=== PATIENT | female | born 1955 | race Caucasian/White ===

== ENCOUNTER 2022-02-08 10:13 | Outpatient (CLI) | payer MEDICARE, BC, SELFPAY ==
[2022-02-08 12:49] LABS: Chloride* 105 mmol/L (96-114); Potassium* 4.6 mmol/L (3.6-5.1); Sodium* 144 mmol/L (135-149)
[2022-02-08 12:52] LABS: Carbon Dioxide* 32 mmol/L (20-32); Creatinine* 0.8 mg/dL (0.5-1.5); Estimated Glomerular Filt Rate 81 ml/min
[2022-02-08 12:53] LABS: Blood Urea Nitrogen* 11 mg/dL (7-30); Calcium* 10.2 mg/dL (8.4-10.6); Glucose* 81 mg/dL (60-115)
[2022-02-08 13:09] LABS: Vitamin D 25 Hydroxy* 92 ng/mL (30-80)
== END 2022-02-08 10:14 | disposition home or self-care (01) ==
PROVIDERS: PCP Internal Medicine; Visit Provider Internal Medicine
DX: Z01.419 Encounter for gynecological examination (general) (routine) without abnormal findings (principal); M85.80 Other specified disorders of bone density and structure, unspecified site; I10 Essential (primary) hypertension; N95.2 Postmenopausal atrophic vaginitis
CPT/HCPCS: 80048; 82306

== ENCOUNTER 2022-06-21 13:38 | Outpatient (CLI) | payer MEDICARE, BC, SELFPAY ==
--- NOTE | 2022-06-21 14:00 | CRLHL7_ITS ---
For Patients: As a result of the Cures Act, medical imaging exams and procedure reports are released immediately into your electronic medical record. You may view this report before your referring provider. If you have questions, please contact your health care provider. BILATERAL SCREENING MAMMOGRAM WITH COMPUTER-AIDED DETECTION AND TOMOSYNTHESIS INDICATION: 67-year-old asymptomatic female. History of benign LEFT breast biopsy in approximately 2009. History of BILATERAL breast implants. TECHNIQUE: CC and MLO views were obtained. This digital study was evaluated with assistance of computer-aided detection. Digital breast tomosynthesis utilized for interpretation. COMPARISON: Outside mammograms from [place] were not received. FINDINGS: Breast composition: The breasts are heterogeneously dense, which may obscure small masses No suspicious microcalcifications or regions of architectural distortion identified in either breast. There are retropectoral BILATERAL breast implants which appear intact. No underlying mass. No suspicious microcalcifications or regions of architectural distortion. IMPRESSION: Dense breast tissue. BILATERAL breast implants. Annual mammography recommended. BI-RADS Category 2: Benign A lay language report of this examination will be provided to the patient. Dictated by: Alok Robin MD @07/06/2022 10:26:11 AM/kermit CHRISTINA/Dictated by: Alok Robin MD @ 07/06/2022 10:26:00 AM (Electronically Signed)
== END 2022-06-21 13:39 | disposition home or self-care (01) ==
LOC: MAMMO 13:41
PROVIDERS: PCP Internal Medicine; Visit Provider Internal Medicine
DX: Z12.31 Encounter for screening mammogram for malignant neoplasm of breast (principal); R92.2 Inconclusive mammogram
CPT/HCPCS: 77063; 77067

== ENCOUNTER 2022-06-25 08:39 | Outpatient (CLI) | payer MEDICARE, BC, SELFPAY ==
--- NOTE | 2022-06-25 10:16 | W.ANESCHARGE ---
Anesthesia Charges Start Date/Time Anesthesia Start Date: 06/25/22 Anesthesia Start Time: 09:37 Stop Date/Time Anesthesia Stop Date: 06/25/22 Anesthesia Stop Time: 10:12
== END 2022-06-25 08:40 | disposition home or self-care (01) ==
PROVIDERS: PCP Internal Medicine; Visit Provider Internal Medicine Gastroenterology
DX: R19.5 Other fecal abnormalities (principal); Q43.8 Other specified congenital malformations of intestine
CPT/HCPCS: 00812; 45378; 45385; J2704

== ENCOUNTER 2023-12-30 11:19 | Outpatient (CLI) | payer MEDICARE, BC, SELFPAY ==
--- OUTSIDE RECORDS SUMMARY | 2023-12-30 11:25 | XMS_ITS | Clinical Summary ---
Author Organization [facility] Address [address] [place] [id number] Care Team Providers Care Ground Operations Crew Member Name Role Phone No Ref-Primary, Physician Primary Care Provider Allergies Active Allergy Reactions Criticality Noted Date Comments Lactose GI Disturbance 07/22/2018 Needed Hospitalized as a Latex 12/12/2016 Medications Medication Sig Dispensed Refills Start Date End Date Status olmesartan (BENICAR) 20 MG tabletIndications:Sang gn essential hypertension Take 1 tablet (20 mg) by mouth At Bedtime 90 tablet 1 09/15/2019 Active Active Problems Problem Noted Date Diagnosed Date Benign essential hypertension 09/15/2019 Immunizations Name Administration Dates Next Due Influenza Vaccine >6 months,quad, PF 12/12/2018 Mantoux Tuberculin Skin Test 12/12/2016 TDAP Vaccine (Adacel) 07/22/2018 Family History Medical History Relation Comments Cerebrovascular Disease Father Hypertension Mother Relation Status Comments Brother 1 Alive Brother 2 Alive Brother 3 Alive Brother 4 Alive Father Maternal Grandfather Maternal Grandmother Mother Alive Paternal Grandfather Paternal Grandmother Sister 1 Alive Sister 2 Alive Sister 3 Alive Sister 4 Alive Sister 5 Alive Son Alive Social History Tobacco Use Types Packs/Day Years Used Date Smoking Tobacco: Never Smokeless Tobacco: Never Alcohol Use Standard Drinks/Week Comments Yes 0 (1 standard drink = 0.6 oz pur e alcohol) hardly ever PHQ-2 Answer Date Recorded PHQ-2 Score 0 09/15/2019 Adolescent Education Answer Date Record ed Getting School Help Needed Not on file 12/01 Sex and Gender Information Value Date Recorded Sex Assigned at Not on file Gender Identity Not on file Sexual Orientation Not on file Last Filed Vital Signs Vital Sign Reading Time Taken Comments Blood Pressure 146/90 09/15/2019 1:44 PM CDT Pulse 72 09/15/2019 1:44 PM CDT Temperature 37.1 ??C (98.8 ??F) 09/15/2019 1:44 PM CD T Respiratory Rate 16 09/15/2019 1:44 PM CDT Oxygen Saturation - - Inhaled Oxygen Concentration - - Weight 62.9 kg (138 lb 11.2 oz) 09/15/2019 1:44 PM CDT Height 163.8 cm (5' 4.5) 09/15/2019 1:44 PM CDT Body Mass Index 23.44 09/15/2019 1:44 PM CDT Plan of Treatment Not on file Care Teams Ground Operations Crew Member Relationship Specialty Start Date End Date No Ref-Primary, Physician PCP - General 04/29/19
--- OUTSIDE RECORDS SUMMARY | 2023-12-30 11:25 | XMS_ITS | Referral Summary ---
Author Organization [facility] Address [address] [place] [id number] Care Team Providers Care Marine Chronometer Assembler Name Role Phone No Ref-Primary, Physician Primary [...] Skin Test 12/12/2016 TDAP Vaccine (Adacel) 07/22/2018 Social History Tobacco Use Types Packs/Day Years [...] of Treatment Not on file Care Teams Marine Chronometer Assembler Relationship Specialty Start Date End Date No Ref-Primary, Physician PCP - General 04/29/19
--- OUTSIDE RECORDS SUMMARY | 2023-12-30 11:25 | XMS_ITS | Encounter Summary ---
Author Organization [facility] Address [address] [place] [address]. [place] [address] Care Team Providers Care Fabrication Welder Name Role Phone No Ref-Primary, Physician Primary Care Provider Kai Jarquin MD Unavailable [phone] Kai Jarquin MD Unavailable [phone] Encounter Details Date Type Department Care Team (Late st Contact Info) Description 10/04/2020 [facility] Medical Advice [facility] [address] [place] [address] Heike Garcia MA Social History Tobacco Use Types Packs/Day Years Used Date Smoking Tobacco: Never Smokeless Tobacco: Never Alcohol Use Standard Drinks/Week Comments Yes 0 (1 standard drink = 0.6 oz pur e alcohol) hardly ever PHQ-2 Answer Date Recorded PHQ-2 Score 0 09/15/2019 Sex and Gender Information Value Date Recorded Sex Assigned at Not on file Gender Identity Not on file Sexual Orientation Not on file documented as of this encounter Plan of Treatment Not on file documented as of this encounter Visit Diagnoses Not on filedocumented in this encounter Care Teams Fabrication Welder Relationship Specialty Start Date End Date No Ref-Primary, Physician PCP - General 04/29/19 [place] [id number] [address] [place] [id number] Assigned PCP 08/21/19 02/23/22 [place] [id number] [address] [place] [id number] Assigned PCP 05/05/22 09/14/22 documented as of this encounter
== END 2023-12-30 11:20 | disposition home or self-care (01) ==
PROVIDERS: PCP Internal Medicine; Visit Provider Internal Medicine
DX: E67.3 Hypervitaminosis D (principal); I10 Essential (primary) hypertension; M85.80 Other specified disorders of bone density and structure, unspecified site
CPT/HCPCS: 80048; 82306

== ENCOUNTER 2024-04-08 13:21 | Outpatient (CLI) | payer MEDICARE, BC, SELFPAY ==
--- NOTE | 2024-04-08 13:20 | CRLHL7_ITS ---
For Patients: As a result of the Century Cures Act, medical imaging exams and procedure reports are released immediately into your electronic medical record. You may view this report before your referring provider. If you have questions, please contact your health care provider. BILATERAL DIGITAL SCREENING MAMMOGRAM WITH COMPUTER-AIDED DETECTION AND TOMOSYNTHESIS CLINICAL HISTORY: Routine screening exam. COMPARISON: 06/21/22. TECHNIQUE: Digital mammogram in CC and MLO projections including computer-aided detection (CAD). Tomosynthesis was used in this interpretation. BREAST COMPOSITION: The breasts are heterogeneously dense, which may obscure small masses. FINDINGS: RIGHT Breast: No suspicious findings. Intact implant. LEFT Breast: Focal nodular density lateral left breast CC view only 5 cm from the nipple. No architectural distortion. Implant is intact. IMPRESSION: LEFT breast asymmetry/mass. RECOMMENDATIONS: LEFT breast ultrasound recommended. The [facility] will contact the patient. A lay language report of this examination will be provided to the patient. BI-RADS Category 0: Incomplete: Need Additional Imaging Evaluation Dictated by Zachary Rodriguez MD @ 04/09/2024 10:35:11 AM /Dictated by: Zachary Rodriguez MD @ 04/09/2024 10:35:00 AM (Electronically Signed)
== END 2024-04-08 13:22 | disposition home or self-care (01) ==
LOC: MAMMO 13:23
PROVIDERS: PCP Internal Medicine; Visit Provider Internal Medicine
DX: Z12.31 Encounter for screening mammogram for malignant neoplasm of breast (principal); R92.333 Mammographic heterogeneous density, bilateral breasts; N63.20 Unspecified lump in the left breast, unspecified quadrant
CPT/HCPCS: 77063; 77067

== ENCOUNTER 2024-04-13 11:16 | Outpatient (CLI) | payer MEDICARE, BC, SELFPAY ==
--- NOTE | 2024-04-13 11:15 | CRLHL7_ITS ---
For Patients: As a result of the Century Cures Act, medical imaging exams and procedure reports are released immediately into your electronic medical record. You may view this report before your referring provider. If you have questions, please contact your health care provider. CLINICAL HISTORY: : Left breast mass/asymmetry. COMPARISON: 04/08/2024 TECHNIQUE: Real-time ultrasound imaging of left breast with imaging documentation. FINDINGS: Targeted sonogram left breast upper outer quadrant 1 o`clock 6 cm from the nipple performed. In this location there is a solid hypoechoic circumscribed nodule measuring 7 x 4 x 8 millimeters. This is adjacent to and underlying implant. No fluid around the implant. IMPRESSION: Indeterminate solid nodule left breast 1 o`clock 6 cm from the nipple measuring 8 millimeters. RECOMMENDATIONS: Ultrasound-guided biopsy should be considered. Results and recommendations were discussed with the patient at the time of the exam. A lay language report of this examination will be provided to the patient. BI-RADS Category 4. Suspicious. Dictated by Zachary Rodriguez MD @ 04/13/2024 1:14:47 PM (Electronically Signed)
== END 2024-04-13 11:17 | disposition home or self-care (01) ==
LOC: US 11:17
PROVIDERS: PCP Internal Medicine; Visit Provider Internal Medicine
DX: N63.20 Unspecified lump in the left breast, unspecified quadrant (principal); R92.8 Other abnormal and inconclusive findings on diagnostic imaging of breast
CPT/HCPCS: 76642

== ENCOUNTER 2025-02-01 14:12 | Outpatient (CLI) | payer MEDICARE, SELFPAY | END 2025-02-01 14:13 | disposition home or self-care (01) | PROVIDERS: PCP Internal Medicine; Visit Provider Internal Medicine | DX: I10 Essential (primary) hypertension (principal); M85.80 Other specified disorders of bone density and structure, unspecified site | CPT/HCPCS: 80048; 82306 ==